=== PATIENT | female | born 1940 | race Caucasian/White ===

== ENCOUNTER 2021-12-23 11:20 | Day surgery (SDC) | payer MEDICARE ==
[2021-12-21 12:08] LABS: BASOPHILS % (AUTO) 0.3 % (0.0-5.0); EOSINOPHILS % (AUTO) 1.4 % (0.0-8.0); HEMATOCRIT 39.3 % (36-48); MEAN CORPUSCULAR HEMOGLOBIN 30.9 pg (27.0-33.0); MEAN CORPUSCULAR HGB CONC 32.8 g/dL (32.0-36.0); MEAN CORPUSCULAR VOLUME 94.2 fL (79-99); MONOCYTES % (AUTO) 6.3 % (3.0-13.0); NEUTROPHILS % (AUTO) 66.8 % (40.0-77.0); PLATELET COUNT (AUTO) 264 K/uL (130-400); RED BLOOD CELL COUNT(AUTO) 4.17 MIL/uL (4.00-5.50); RED CELL DISTRIBUTION WIDTH 12.3 % (11.0-15.5); WHITE BLOOD COUNT (AUTO) 6.5 K/uL (4.8-10.8)
[2021-12-21 12:20] LABS: INR 0.99 (0.85-1.15); PROTHROMBIN TIME 10.8 SEC (9.6-11.6)
[2021-12-21 12:26] LABS: BILIRUBIN,TOTAL 0.4 mg/dL (0.2-1.0); CREATININE 0.6 mg/dL (0.5-1.5)
[2021-12-22 13:53] VITALS: BP 199/87
[2021-12-23] VITALS (17 sets, daily range): BP systolic 144–237; BP diastolic 71–126
[~2021-12-23] VITALS: Ht 167.6 cm; Wt 58.2 kg
[~2021-12-23 11:20] MED LIST: BEET ROOT PO; CEFAZOLIN SODIUM 1 GM VIAL ONE; CEFAZOLIN SODIUM 2 GM VIAL IV ONE; DEXAMETHASONE SOD PHOSPHATE 10MG/ML 1ML VIAL ONE; FENTANYL CITRATE PF 50 MCG/1 ML 2ML VIAL ONE; GLYCOPYRROLATE 1 MG/5 ML SYRINGE ONE; LABETALOL 20MG VIAL IV ONE; LACTATED RINGERS 1000ML 1,000 ML IV ONE; LIDOCAINE 1%-EPI 1:100,000 20 ML VIAL IJ SCH; LIDOCAINE PF 100MG/5ML (2%) SYRINGE 5ML ONE; MIDAZOLAM HCL 1 MG/ML 2ML VIAL ONE; MULT-1367 PO; NEOSTIGMINE 5MG/5ML SYR IV ONE; PROPOFOL 10 MG/ML 20ML VIAL IV ONE; ROCURONIUM 10MG/1ML SYR 10 MG/ML ML ONE; SUCCINYLCHOLINE 200MG/10ML SYR ONE; TURMERIC PO; VIT1LOZE5 MM; VITAMIN D PO; garlic PO; magnesium PO; vitamin b PO
== END 2021-12-23 11:23 | disposition home or self-care (01) ==
LOC: DAH 11:20
PROVIDERS: ATTEND Otolaryngology
DX: D37.05 Neoplasm of uncertain behavior of pharynx (principal); J35.8 Other chronic diseases of tonsils and adenoids; Z20.822 Contact with and (suspected) exposure to COVID-19; E66.9 Obesity, unspecified; I25.10 Atherosclerotic heart disease of native coronary artery without angina pectoris; Z79.01 Long term (current) use of anticoagulants; Z98.891 History of uterine scar from previous surgery; Z90.710 Acquired absence of both cervix and uterus; Z90.49 Acquired absence of other specified parts of digestive tract; Z98.890 Other specified postprocedural states; Z88.8 Allergy status to other drugs, medicaments and biological substances; Z80.3 Family history of malignant neoplasm of breast
CPT/HCPCS: 36415; 42870; 71045; 80053; 85025; 85610; 87635; 88304; 88305; 88342; 93005; A4215; A4606; A6260; J0330; J0690 ×2; J1100; J2001; J2250; J2704; J2710; J3010; J3490 ×3; J7120

== ENCOUNTER 2025-07-27 12:50 | Inpatient (IN) | payer MEDICARE ==
[~2025-07-27] VITALS: Ht 165.1 cm; Wt 58.5 kg
[~2025-07-27 12:50] MED LIST changes: -CEFAZOLIN SODIUM 1 GM VIAL ONE; -CEFAZOLIN SODIUM 2 GM VIAL IV ONE; -DEXAMETHASONE SOD PHOSPHATE 10MG/ML 1ML VIAL ONE; -FENTANYL CITRATE PF 50 MCG/1 ML 2ML VIAL ONE; -GLYCOPYRROLATE 1 MG/5 ML SYRINGE ONE; -LABETALOL 20MG VIAL IV ONE; -LACTATED RINGERS 1000ML 1,000 ML IV ONE; -LIDOCAINE 1%-EPI 1:100,000 20 ML VIAL IJ SCH; -LIDOCAINE PF 100MG/5ML (2%) SYRINGE 5ML ONE; -MIDAZOLAM HCL 1 MG/ML 2ML VIAL ONE; -NEOSTIGMINE 5MG/5ML SYR IV ONE; -PROPOFOL 10 MG/ML 20ML VIAL IV ONE; -ROCURONIUM 10MG/1ML SYR 10 MG/ML ML ONE; -SUCCINYLCHOLINE 200MG/10ML SYR ONE
[2025-07-27 13:15] LABS: IMMATURE GRANULOCYTE ABSOLUTE 0.02 K/uL (0-1); NUCLEATED RED BLOOD CELLS 0.0 % (0.0-0.19); PLATELET COUNT (AUTO) 246 K/uL (130-400); RED BLOOD CELL COUNT(AUTO) 4.30 MIL/uL (4.00-5.50); RED CELL DISTRIBUTION WIDTH 12.9 % (11.0-15.5); WHITE BLOOD COUNT (AUTO) 7.4 K/uL (4.8-10.8)
[2025-07-27] MEDS: NITROGLYCERIN 0.4 MG SL TAB SL PRN (13:21)
[2025-07-27] MEDS: ASPIRIN 81MG CHEW TAB PO STA (13:21)
[2025-07-27 13:31] LABS: CREATININE 0.8 mg/dL (0.5-1.0); GLOMERULAR FILTR. RATE CALC 73.0 mL/min (>90); GLUCOSE,RANDOM 107.0 mg/dL (70-105); SODIUM SERUM 136.0 mmol/L (136-145); UREA NITROGEN, BLOOD 21.0 mg/dL (7-18)
--- NOTE | 2025-07-27 15:14 | HMCIMG ---
EXAM: CR Chest, 1 View. CLINICAL HISTORY: cp COMPARISON: Radiograph dated December 21, 2021 FINDINGS: LUNGS: There is no mass, infiltrate, or acute pulmonary abnormality. PLEURAL SPACES: No evidence of pleural effusion or pneumothorax. MEDIASTINUM: Mild cardiomegaly. Pulmonary vasculature and interstitial markings are within normal limits. BONES: No acute osseous abnormality. IMPRESSION: 1. Mild cardiomegaly. /[place]
--- NOTE | 2025-07-27 16:00 | ERN ---
ED Note History of Present Illness Stated Complaint: CHEST PAIN Chief Complaint: Chest Pain Time Seen by MD: 12:55 Time Seen by Midlevel: 12:58 Dictation: 85-year-old female coming in for chest pain that started this morning. Patient states she was in sikhism when she began with jaw pain then bilateral shoulder pain than chest pain. Patient states she has never experienced this before. Patient states the pain subsided once she already here to the emergency room. Patient denies any medical problems, states she does not take any daily medications only vitamins. Allergies: Coded Allergies: hydrochlorothiazide (Unverified Allergy, Unknown, 12/22/21) Uncoded Allergies: lisinpril (Allergy, Unknown, 12/22/21) tetanus (Allergy, Unknown, 12/22/21) Home Meds Reported Medications Multivitamin (Multivitamin) 1 Each Tablet, 1 EACH PO AM, TAB 12/22/21 [Turmeric] No Conflict Check, 1 TAB PO AM 12/22/21 Vit C/Zn Gluc/Herbal No.325 (Elderberry Zinc Vit C Lozenge) 1 Each Lozenge, 1 EACH MM AM, KARYN 12/22/21 [Vitamin D] No Conflict Check, 1 TAB PO AM 12/22/21 [magnesium] No Conflict Check, 1 TAB PO AM 12/22/21 [vitamin b] No Conflict Check, 1 TAB PO AM 12/22/21 [garlic] No Conflict Check, 2 TAB PO AM 12/22/21 [beet root powder] No Conflict Check, 1 APPL PO AM 12/22/21 Past Medical History Past Medical History: Hypertension Surgical History: Appendectomy, BTL, Surgical History Other: THROAT SX, RT HIP SX Review of System Dictation Constitutional: Negative for fever,chills, and weight loss Eyes: Negative for injury, pain,redness, and discharge ENT: Negative for injury,pain or swelling Cardiovascular: Positive for chest pain Respiratory: Negative for shortness of breath, cough, and wheezing, Abdomen/GI: Negative for abdominal pain, nausea, vomiting, diarrhea, and constipation Back: Negative for injury and pain : Negative for injury, bleeding and discharge MS/Extremity: Negative for injury and deformity Skin: Negative for rash, and discoloration Neuro: Negative for headache, weakness, numbness, tingling, and seizure Psych: Negative for suicide ideation, homicidal ideation, and hallucinations Review of Systems: was completed Initial Vital Sign VS Vital Signs Date Time Temp Pulse Resp B/P (MAP) Pulse Ox O2 Delivery O2 Flow Rate FiO2 07/27/25 12:52 98.1 97 20 182/97 97 Room Air 0 07/27/25 13:15 21 Physical Exam Dictation General: awake, alert, NAD Head/Face: Normocephalic, atraumatic Eyes: PERRL, EOMI, vision at baseline ENT: oral cavity clear, TMs clear, no signs of infection Neck: Trachea midline, supple, no nuchal rigidity Cardiovascular: RRR, normal S1/S2, No MRGs, no JVD Respiratory: CTAB, no respiratory distress, No rales or wheezes Abdomen: Soft, non-tender, non-distended, normal bowel sounds, no guarding or rebound. Skin: Warm, dry, normal turgor, no rash MS/Extremity: Pulses equal, no cyanosis, neurovascular intact, FROM Neuro: COAx4, GCS 15, strength 5/5, CN 2-12 intact, normal cerebellar exam, normal gait, Psych: Normal behavior, mood, and affect normal Results (Laboratory/Radiology) Laboratory/Radiology Laboratory Tests Test 07/27/25 13:09 07/27/25 14:50 White Blood Count 7.4 K/uL (4.8-10.8) Red Blood Count 4.30 MIL/uL (4.00-5.50) Hemoglobin 13.3 g/dL (12.0-16.0) Hematocrit 40.5 % (36-48) Mean Corpuscular Volume 94.2 fL (79-99) Mean Corpuscular Hemoglobin 30.9 pg (27.0-33.0) Mean Corpuscular Hemoglobin Concent 32.8 g/dL (32.0-36.0) Red Cell Distribution Width 12.9 % (11.0-15.5) Platelet Count 246 K/uL (130-400) Mean Platelet Volume 8.8 fL (7.5-10.5) Immature Granulocyte % (Auto) 0.3 % (0-1) Neutrophils (%) (Auto) 65.9 % (40.0-77.0) Lymphocytes (%) (Auto) 22.2 % (21.0-51.0) Monocytes (%) (Auto) 9.8 % (3.0-13.0) Eosinophils (%) (Auto) 1.5 % (0.0-8.0) Basophils (%) (Auto) 0.3 % (0.0-5.0) Neutrophils # (Auto) 4.9 K/uL (1.8-7.7) Lymphocytes # (Auto) 1.6 K/uL (1.0-4.8) Monocytes # (Auto) 0.7 K/uL (0.1-1.0) Eosinophils # (Auto) 0.11 K/uL (0.00-0.70) Basophils # (Auto) 0.02 K/uL (0.00-0.20) Absolute Immature Granulocyte (auto 0.02 K/uL (0-1) Nucleated Red Blood Cells 0.0 % (0.0-0.19) Sodium Level 136 mmol/L (136-145) Potassium Level 4.9 mmol/L (3.5-5.1) Chloride Level 99 mmol/L (101-111) L Carbon Dioxide Level 33 mmol/L (21-32) H Blood Urea Nitrogen 21 mg/dL (7-18) H Creatinine 0.8 mg/dL (0.5-1.0) Glomerular Filtration Rate Calc 73 mL/min (>90) Random Glucose 107 mg/dL (70-105) H Total Calcium 9.6 mg/dL (8.5-10.1) Troponin I High Sensitivity 10 ng/L (4-50) 11 ng/L (4-50) B-Type Natriuretic Peptide 67 pg/mL (0-100) Labs Reviewed?: Yes X-RAY Comment: [place] [address] [place] [address] IMAGING REPORT Signed PATIENT: MAX PEOPLES MR#: [id number] : 1940 SEX: F AGE: 85 LOCATION: [facility] ORDER 57 STATUS: REG ER REPORT#: [id number] SERVICE 55 REASON: cp ORDERING PHYSICIAN: SONNY CARDENAS NP PROCEDURE: CXR1VW - CHEST 1VW EXAM: CR Chest, 1 View. CLINICAL HISTORY: cp COMPARISON: Radiograph dated December 21, 2021 FINDINGS: LUNGS: There is no mass, infiltrate, or acute pulmonary abnormality. PLEURAL SPACES: No evidence of pleural effusion or pneumothorax. MEDIASTINUM: Mild cardiomegaly. Pulmonary vasculature and interstitial markings are within normal limits. BONES: No acute osseous abnormality. IMPRESSION: 1. Mild cardiomegaly. /[place] DICTATED BY: OSWALDO STEWART Jr., MD DATE: 07/27/251612 ELECTRONICALLY SIGNED BY: OSWALDO STEWART Jr., MD DATE: 07/27/251612 ED Course ED Course Orders Procedure Category Date Status Time Cbc With Differential LAB 07/27/25 Complete 12:56 Basic Metabolic Panel LAB 07/27/25 Complete 12:56 Troponin I High LAB 07/27/25 Complete Sensitivity 12:56 12 Lead Ekg Tracing- EKG 07/27/25 Logged Technical 12:56 Chest 1vw RAD 07/27/25 Resulted 12:56 B-Type Natriuretic LAB 07/27/25 Complete Peptide 12:56 Aspirin 81mg Chew Tab PHA 07/27/25 Complete (Aspirin 81mg Chew 12:57 Nitroglycerin 0.4mg PHA 07/27/25 In Process Sl Tab (Nitrostat) 13:00 Troponin I High LAB 07/27/25 Complete Sensitivity 14:38 Current Medications Medications (Trade) Dose Ordered Sig/Felicity Route PRN Reason Start Time Stop Time Status Last Admin Dose Admin Aspirin (Aspirin 81mg Chew Tab) 324 mg ONCE STAT PO 07/27/25 12:57 07/27/25 12:59 DC 07/27/25 13:21 Nitroglycerin (Nitrostat) 0.4 mg AD PRN SL CHEST PAIN 07/27/25 13:00 08/26/25 12:59 07/27/25 13:21 Vital Signs Date Time Temp Pulse Resp B/P (MAP) Pulse Ox O2 Delivery O2 Flow Rate FiO2 07/27/25 15:30 98.1 73 13 164/78 97 Room Air* 0 21 07/27/25 14:30 98.1 82 17 182/82 97 Room Air* 0 21 07/27/25 13:25 98.1 84 18 171/74 97 Room Air* 0 21 07/27/25 13:15 84 18 204/85 98 Room Air* 0 21 07/27/25 12:52 98.1 97 20 182/97 97 Room Air 0 HEART Score Response (Comments) Value History: High suspicion (+2) 2 EKG: Normal 0 Age: > 65yrs (+2) 2 Risk Factors: No known risk factors (0) 0 Total 4 Medical Decision Making MDM MDM: 85-year-old female coming in for chest pain that started this morning. Patient states she was in sikhism when she began with jaw pain then bilateral shoulder pain than chest pain. Patient states she has never experienced this before. Patient states the pain subsided once she already here to the emergency room. Patient denies any medical problems, states she does not take any daily medications only vitamins. Blood work is unremarkable. Troponin x2 negative. Heart score of four. Patient will be admitted for observation to rule out ACS. Spoke to hospitalist team, okay to admit. Differential diagnosis: ACS, dehydration, anxiety, GERD Rationale: Tests considered and ordered secondary to shared decision making include: labs, ECG and radiology Previous outside records reviewed: Old ER visits. Risk of complication and/or morbidity or mortality of patient management: None Medications-Per medication reconciliation Need for hospitalization: Patient does meet criteria for hospitalization. Need for emergency major/minor surgery: No There are no social concerns with this patient. Prescription drug management Prescriptions will include symptomatic care Patient's prior external medical records from other ER visits were reviewed by me as indicated. Prior testing and results from previous visits were reviewed. Prior tests were taken into account with medical decision making and resource utilization, independent historian/historians were used to obtain complete medical history. I independently interpreted the test that were performed, results were reviewed by me and considered findings on radiology if ordered. Medical management and examination interpretation discussions were had by me with other qualified healthcare professionals as indicated for the patient's care. DX & DISP Disposition: Discharge Decision to Admit Date: Jul 27, 2025 Decision to Admit Time: 16:00 Departure Impression: Primary Impression: Chest pain at rest Condition: Stable Referrals: GIACOMO KHOURY MD (PCP) I have reviewed the case, and I agree with, Diagnosis and Plan SONNY CARDENAS NP Jul 27, 2025 16:00
--- NOTE | 2025-07-27 16:45 | EKG ---
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
[2025-07-27 17:05] LABS: LDL DIRECT 128.0 mg/dL (0-99)
--- NOTE | 2025-07-27 17:09 | NUR ---
ORTHOSTATIC VITALS SUPINE HR 68 BP 171/83 SITTING HR 78 BP 166/85 STANDING HR 88 BP 170/88
--- NOTE | 2025-07-27 18:03 | NUR ---
NO MED REC. PT DOES NOT TAKE ANY PRESCRIPTION MEDS.
--- NOTE | 2025-07-27 18:04 | HP ---
[facility] HISTORY AND PHYSICAL Date of Service: Jul 27, 2025 Time of Service: 17:49 HISTORY OF PRESENT ILLNESS: Date of service: 07/27/2025, patient was seen in ER room 11 This is a 85-year-old female underlying history of poorly controlled hypertension who presented to the ER for further evaluation of chest pain. Patient states that she was in the [place] today and close to 11:30 a.m., history started having significant midsternal chest pain radiating to the upper jaw, shoulder blades and pain was [id number] in intensity. Pain lasted for about 40 minutes and patient had symptoms of dyspepsia as well. Patient denies any previous history of NC or cardiac arrhythmia. She has had history of longstanding hypertension for about 15 years. Previously would used to take antihypertensives and she has been on lisinopril which caused cough, patient states that she was having low blood pressure after starting amlodipine as outpatient and she also has possible adverse reaction to HCTZ but patient does not know the type of reaction. Chest pain is currently minimal. She denies any headache otherwise. Denies any focal weakness of upper or lower extremities. Patient has recently noticed that she would get tired with exertional activities. Denies noticing significant chest pain. 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 On presentation to the hospital, blood pressure fluctuating between 204/182 systolic/70s-90s diastolic. Labs on presentation showed WBC count of 7400, hemoglobin 13.3, platelet count of [id number]. BMP showed sodium of 136, potassium 4.9, chloride of 99, bicarb of 33, BUN of 21, creatinine of 0.8, blood glucose of 107. Cardiac panel showed negative troponin. EKG showed changes of LVH with sinus rhythm. Patient will be admitted for further management of hypertensive urgency with concerns for anginal symptoms. Due to multiple adverse reaction to antihypertensives, discussed with Cardiology with regards to further initiation and titration of antihypertensive therapy. We will obtain echocardiogram, cycle troponin to rule out active ACS. Given underlying age and risk factors, we will consider possible stress test for risk stratification. REVIEW OF SYSTEMS CONSTITUTIONAL: Denies fevers, chills, or night sweats. No unintentional weight loss reported. NEUROLOGICAL: Denies headache, amaurosis fugax, motor weakness, sensory deficit, vertigo/spinning sensation, gait abnormalities, or tremors. ENT: No hearing loss, otalgia, otorrhea, rhinitis, rhinorrhea, hoarseness, or sore throat. CARDIOVASCULAR: Denies any exertional angina, dyspnea on exertion, orthopnea, paroxysmal nocturnal dyspnea, palpitations, life-threatening arrhythmias, claudication. PULMONARY: Denies any shortness of breath, cough, phlegm/sputum, hemoptysis, pleuritic chest pain. SLEEP: Denies morning headaches, daytime somnolence or napping. Denies difficulty falling asleep, staying asleep, waking from sleep. Denies knowledge of snoring. GASTROINTESTINAL: Denies any type of dysphagia to either liquids or solids. Denies nausea, vomiting, pyrosis, early satiety, abdominal pain, diarrhea, constipation, or changes in stool consistency or caliber. Denies coffee-ground emesis, hematemesis, hematochezia, or melanotic stools. GENITOURINARY: Denies frequency, urgency, nocturia, hematuria or incontinence (Storage/Irritative symptoms.) Low urinary stream, straining to void, urinary intermittency or hesitancy, splitting of the voiding stream, terminal dribbling. ENDOCRINOLOGIC: Denies polyuria, polydipsia, polyphagia or heat/cold intolerances. HEMATOLOGIC: Denies thrombophilia/previous clots, or coagulopathy/bleeding disorders. ONCOLOGIC: Denies personal history of malignancy. DERMATOLOGIC: Denies rashes or pruritus. PSYCHIATRIC: Denies any suicidal or homicidal ideation. Denies hallucinations. PAST MEDICAL HISTORY: Uncontrolled hypertension, patient currently is using lifestyle modification for management of hypertension PAST SURGICAL HISTORY: Appendectomy, , history of right hip fracture requiring surgical fixati on PAST SOCIAL HISTORY: Patient denies active smoking or alcohol consumption FAMILY HISTORY: Denies family history of major health condition Allergies: Hydrochlorothiazide, lisinopril, tetanus Home medications: Reports taking multivitamins at home and oycq-mwj-rcilchz supplements Coded Allergies: hydrochlorothiazide (Unverified Allergy, Unknown, 12/22/21) Uncoded Allergies: lisinpril (Allergy, Unknown, 12/22/21) tetanus (Allergy, Unknown, 12/22/21) PHYSICAL EXAM GENERAL APPEARANCE: The patient is awake, alert, and oriented, in no acute cardiopulmonary distress. NEUROLOGICAL: Cranial nerves II-XII grossly intact. Motor is 5/5 in bilateral upper and lower extremities proximal to distal. No sensory deficits. HEENT: Face is symmetric. Pupils are equal and reactive. Extraocular movements are intact. NECK: Supple. No JVD. No thyromegaly. No submental, submandibular, pre-/postauricular, occipital or supraclavicular lymphadenopathy. CHEST: Normal chest expansion. No Telemetry. LUNGS: Absence of any rales, rhonchi or any wheezing. CARDIOVASCULAR: Regular. S1 and S2 normal. No appreciable rubs, murmurs or gallops. ABDOMEN: Soft, nontender, and nondistended. There is no rebound, voluntary guarding, or rigidity. : Deferred. No Guerra. EXTREMITIES: Non-edematous and not cyanotic. No clubbing. Good capillary refill. SKIN: No skin breakdown. Vital Sign (Last 24 Hours) 07/27/25 15:30 Temp 98.1 Pulse 73 Resp 13 B/P (MAP) 164/78 Pulse Ox 97 O2 Delivery Room Air* O2 Flow Rate 0 FiO2 21 LABS: Laboratory: Test 07/27/25 14:50 07/27/25 13:09 Range/Units Troponin I High Sensitivity 11 4-50 ng/L White Blood Count 7.4 4.8-10.8 K/uL Red Blood Count 4.30 4.00-5.50 MIL/uL Hemoglobin 13.3 12.0-16.0 g/dL Hematocrit 40.5 36-48 % Mean Corpuscular Volume 94.2 79-99 fL Mean Corpuscular Hemoglobin 30.9 27.0-33.0 pg Mean Corpuscular Hemoglobin Concent 32.8 32.0-36.0 g/dL Red Cell Distribution Width 12.9 11.0-15.5 % Platelet Count 246 130-400 K/uL Mean Platelet Volume 8.8 7.5-10.5 fL Immature Granulocyte % (Auto) 0.3 0-1 % Neutrophils (%) (Auto) 65.9 40.0-77.0 % Lymphocytes (%) (Auto) 22.2 21.0-51.0 % Monocytes (%) (Auto) 9.8 3.0-13.0 % Eosinophils (%) (Auto) 1.5 0.0-8.0 % Basophils (%) (Auto) 0.3 0.0-5.0 % Neutrophils # (Auto) 4.9 1.8-7.7 K/uL Lymphocytes # (Auto) 1.6 1.0-4.8 K/uL Monocytes # (Auto) 0.7 0.1-1.0 K/uL Eosinophils # (Auto) 0.11 0.00-0.70 K/uL Basophils # (Auto) 0.02 0.00-0.20 K/uL Absolute Immature Granulocyte (auto 0.02 0-1 K/uL Nucleated Red Blood Cells 0.0 0.0-0.19 % Sodium Level 136 136-145 mmol/L Potassium Level 4.9 3.5-5.1 mmol/L Chloride Level 99 L 101-111 mmol/L Carbon Dioxide Level 33 H 21-32 mmol/L Blood Urea Nitrogen 21 H 7-18 mg/dL Creatinine 0.8 0.5-1.0 mg/dL Glomerular Filtration Rate Calc 73 >90 mL/min Random Glucose 107 H 70-105 mg/dL Hemoglobin A1c 5.5 4.0-6.0 % Estimated Average Glucose (eAG) 111 70-126 mg/dL Total Calcium 9.6 8.5-10.1 mg/dL B-Type Natriuretic Peptide 67 0-100 pg/mL Triglycerides Level 81 30-200 mg/dL Cholesterol Level 252 H <200 mg/dL LDL Cholesterol 128 H 0-99 mg/dL HDL Cholesterol 89 H 35-85 mg/dL Thyroid Stimulating Hormone (TSH) 1.46 0.36-3.74 uIU/mL Current Medications Medications (Trade) Dose Ordered Sig/Felicity Route PRN Reason Start Time Stop Time Status Last Admin Dose Admin Acetaminophen (TYLenol 325MG TAB) 650 mg Q6H PRN PO MILD PAIN (1-3) 07/27/25 17:00 08/26/25 16:59 Aspirin (Aspirin 81mg Chew Tab) 81 mg DAILY PO 07/28/25 09:00 08/27/25 08:59 Aspirin (Aspirin 81mg Chew Tab) 324 mg ONCE STAT PO 07/27/25 12:57 07/27/25 12:59 DC 07/27/25 13:21 324 MG Atorvastatin Calcium (LIPItor 20MG) 20 mg HS PO 07/27/25 21:00 08/26/25 20:59 Famotidine (Pepcid 20mg Tab) 20 mg BID PO 07/27/25 21:00 08/26/25 20:59 Labetalol HCl (TRANdate 20MG SYG) 10 mg Q6H PRN IV for SBP> 180 07/27/25 18:00 08/26/25 17:59 Nitroglycerin (Nitrostat) 0.4 mg AD PRN SL CHEST PAIN 07/27/25 13:00 08/26/25 12:59 07/27/25 13:21 0.4 MG Ondansetron HCl (zoFRAN 4MG INJ) 4 mg Q6H PRN IVP NAUSEA/VOMITING 07/27/25 17:00 08/26/25 16:59 DIAGNOSTICS / RADIOLOGY: SERVICE [id number] REASON: cp ORDERING PHYSICIAN: SONNY CARDENAS NP PROCEDURE: CXR1VW - CHEST 1VW EXAM: CR Chest, 1 View. CLINICAL HISTORY: cp COMPARISON: Radiograph dated December 21, 2021 FINDINGS: LUNGS: There is no mass, infiltrate, or acute pulmonary abnormality. PLEURAL SPACES: No evidence of pleural effusion or pneumothorax. MEDIASTINUM: Mild cardiomegaly. Pulmonary vasculature and interstitial markings are within normal limits. BONES: No acute osseous abnormality. IMPRESSION: 1. Mild cardiomegaly. /[place] DICTATED BY: OSWALDO STEWART Jr., MD DATE: 07/27/251612 ELECTRONICALLY SIGNED BY: OSWALDO STEWART Jr., MD DATE: 07/27/251612 ASSESSMENT: Hypertensive urgency, POA Chest pain, POA, rule out ACS/unstable angina, POA History of poorly controlled hypertension, POA Left ventricular hypertrophy noted on EKG, POA Hyperlipidemia, uncontrolled, POA Octogenarian, POA History of adverse reactions to multiple antihypertensives previously including lisinopril, HCTZ, and amlodipine, POA PLAN: Patient Will be admitted to cardiac telemetry floor Initially she was noted to have blood pressure in the 200s-180s systolic which is improving into the 160s. Continue to monitor blood pressure trend over the next 24-48 hours Nitroglycerin p.r.n. for chest pain Will start labetalol 100 mg bid and slowly decrease blood pressure in the next 48-72 hours Patient's case was discussed with Dr. Guo with Cardiology, we will trend troponin to rule out active ACS, discussed with Cardiology about further management of poorly controlled blood pressure, we will have Cardiology optimize blood pressure management for the patient We will obtain 2D echocardiogram We will see if patient needs Lexiscan stress test this admission cardiac risk stratification this admission We will start patient on fish oil for HLD, patient does not want to be started on any statin therapy due to prior exprerience, I asked patient to read up on zetia, and maybe zetia may be an option for management of HLD We will start patient on aspirin 81 mg daily All labs will be repeated in the morning, we will monitor patient closely under telemetry We will keep patient on DVT prophylaxis with geriatric dose Lovenox, GI prophylaxis with Pepcid Weight hospitalization for at least 48-72 hours Plan of care was discussed with patient and family at bedside, Cooper Sanders MD Advanced Care Planning: Which of the following were discussed: Hospice care: Yes __ No _X_ Therapeutic options: Yes _X_ No __ Advance directives: Yes _X_ No __ Other discussions: Discussed with who?: Patient Voluntary nature of this service was explained to the patient? Yes _x_ No __ Amount of time spent: 20 minutes COOPER SANDERS MD Jul 27, 2025 18:04
[2025-07-27] MEDS: FAMOTIDINE 20MG TAB PO SCH (19:46)
[2025-07-27] MEDS: FISH OIL 1000 MG/CAP PO SCH (19:46)
[2025-07-27 20:37] LABS: CREATINE KINASE, TOTAL 60.0 U/L (21-232)
--- NOTE | 2025-07-27 23:21 | CONS ---
CONSULT NOTE: CARDIOLOGY Reason for consult: Hypertension, chest pain HPI/story at presentation: This is a pleasant 85-year-old female with past medical history of progressively complaints of atypical chest discomfort, radiating to the neck. Patient has a history of hypertension, uncontrolled and not on any medical therapy because of issues with side effects with medications in the past. Cardiology was consulted for further evaluation and management. Subjective: Past medical history: See below Allergies, Meds See chart Review of systems Review of Systems Constitutional: Negative for chills and fever. HENT: Negative for ear discharge and ear pain. Eyes: Negative for photophobia and discharge. Respiratory: Negative for cough, sputum production and stridor. Cardiovascular: Negative for chest pain and palpitations. Gastrointestinal: Negative for diarrhea and vomiting. Genitourinary: Negative for frequency. Musculoskeletal: Negative for myalgias. Skin: Negative for rash. Neurological: Negative for focal weakness and seizures. Endo/Heme/Allergies: Negative for polydipsia. Psychiatric/Behavioral: Negative for hallucinations. Vitals see chart PHYSICAL EXAMINATION GENERAL: The patient is alert and oriented*3 HEENT: Nonicteric sclerae, non traumatic HEART: Regular rate and rhythm with no murmurs LUNGS: Clear to auscultation bilaterally ABDOMEN: No acute issues, non tender GENITAL, RECTAL: deferred SKIN: No rash NEUROLOGIC: NFND EXTREMITIES: No edema ASSESSMENT CHEST PAIN, HYPERTENSION Atypical pain radiating to the neck HYPERTENSION intolerant to amlodipine because of swelling and lisinopril because of cough in the past CORE MEASURES Pending OTHER MEDICAL PROBLEMS Reviewed PLAN 07/27/2025 no further chest pain, troponins negative. Plan for stress testing tomorrow to further evaluate for ischemia. Received a dose of labetalol to help with blood pressures and she has not had any symptoms with it. She is also willing to consider a low-dose of amlodipine to help blood pressures if needed. Will try amlodipine first-given once a day dosing. If she has any issues with side effects/hypotension, can attempt alternative agents. Seen and examined 07/27/2025 at around 2300. ATTESTATION I was involved substantially in the care of this patient Number and complexity of problems addressed: 1 acute illness with systemic features Amount and or complexity of data Review of prior external note(s) from each unique source: 2+ Ordering of each unique test : 0 Review of the result(s) of each unique test: 2+ Assessment requiring an independent historian(s): No Independent interpretation of test performed by another MD/QHCP/appropriate source (not separately reported) : No Discussion of management or test interpretation with external MD/QHCP/a ppropriate source (not separately reported) : No Risk status (cardiac, billing related): Moderate HOA BLANCA MD Jul 27, 2025 23:21
--- NOTE | 2025-07-28 00:59 | NUR ---
PT INSTRUCTED NOT TO HAVE ANYTHING TO EAT OR DRINK AFTER MIDNIGHT FOR THEIR CARDIAC STRESS TEST. PT VERBALIZED UNDERSTANDING.
[2025-07-28 04:45] LABS: IMMATURE GRANULOCYTE ABSOLUTE 0.01 K/uL (0-1); NUCLEATED RED BLOOD CELLS 0.0 % (0.0-0.19); PLATELET COUNT (AUTO) 215 K/uL (130-400); RED BLOOD CELL COUNT(AUTO) 3.62 MIL/uL (4.00-5.50); RED CELL DISTRIBUTION WIDTH 13.0 % (11.0-15.5); WHITE BLOOD COUNT (AUTO) 5.3 K/uL (4.8-10.8)
[2025-07-28 05:13] LABS: CREATINE KINASE, TOTAL 49.0 U/L (21-232); CREATININE 0.9 mg/dL (0.5-1.0); GLOMERULAR FILTR. RATE CALC 63.0 mL/min (>90); GLUCOSE,RANDOM 101.0 mg/dL (70-105); SODIUM SERUM 136.0 mmol/L (136-145); UREA NITROGEN, BLOOD 20.0 mg/dL (7-18)
[2025-07-28] MEDS ORDERED: PoTASSium chloRIDE 20MEQ ER 20 MEQ ERTAB PO PRN (06:00)
[2025-07-28] MEDS: PoTASSium chl 10% ELIXIR 20MEQ 20 MEQ/15 ML UDCUP PO PRN (06:09)
--- NOTE | 2025-07-28 07:09 | HMCIMG ---
EXAMINATION: ULTRASOUND EXAMINATION OF THE KIDNEYS WITH SPECTRAL DOPPLER OF THE RENAL VESSELS. CLINICAL HISTORY: To assess for renal artery stenosis. COMPARISON: None. TECHNIQUE: Grayscale and color ultrasound images of the kidneys, and spectral Doppler of the renal arteries are submitted. FINDINGS: The kidneys are normal in caliber, the right kidney measures 11.6 x 6.4 x 6.1 cm and the left kidney measures 9.1 x 4.0 x 3.1 cm in craniocaudal, AP, and transverse dimensions respectively. There is normal renal cortical thickness, and increased cortical echogenicity. There is no renal calculus, mass, or hydronephrosis. There is a simple cortical cyst that measures 1.2 x 1.0 cm in the left renal upper pole. Right Peak systolic velocities within the proximal, mid, and distal main right renal artery are 87, 53, and 49 cm/s respectively (resistive index of 0.7, 0.7, and 0.6). Peak systolic velocities within the right intrarenal mid and lower pole arteries are 45 and 41 cm/s respectively (resistive index of 0.7 and 0.6). Left Peak systolic velocities within the proximal, mid, and distal main left renal artery are 155, 95, and 65 cm/s respectively (resistive index of 0.8, 0.8, and 0.6). Peak systolic velocity within the abdominal aorta at the level of the renal arteries is 95 cm/s and resistive index is 0.7 Right renal to aortic ratio: 1.0 Left renal to aortic ratio: 1.9 IMPRESSION: There is no renal arterial stenosis by measurement criteria. Increased echogenicity of both the kidneys may reflect renal parenchymal disease. Recommend clinical correlation and with laboratory parameters. Left renal simple cortical cyst. /Maximiliano
[2025-07-28 08:00] VITALS: BP 183/77; PULSE 65; RESP 13; TEMP 98; O2SAT 97
[2025-07-28] MEDS: ASPIRIN 81MG CHEW TAB PO SCH (08:31)
[2025-07-28] MEDS: amLODIPine 2.5 MG TAB PO SCH (08:31)
[2025-07-28] MEDS: amLODIPine 2.5 MG TAB PO ONE (10:25)
--- NOTE | 2025-07-28 12:11 | HMCSR ---
APPROVED REPORT EXAM: Two-dimensional and M-mode echocardiogram with Doppler and color Doppler. INDICATION ICD: Chest pain, cardiomegaly, assess for heart failure 2D Dimensions RVDd2.9 cmLVEF(%)78.1 (>50%)LVED Vol(simp.)40.0 mL IVSd1.3 (0.7-1.1cm)FS(%)46 %LVES Vol(simp.)16.0 mL LVDd4.4 (3.8-5.6cm)LA (2D)3.3 (1.6-4.0cm)LVEF(%, simp.)60 % PWd1.0 (0.7-1.1cm)Ao Root(2D)2.7 (2.0-3.7cm) IVSs1.6 cmLVOT diam2.3 (1.8-2.4cm) LVDs2.4 (2.5-4.0cm)IVC diam1.7 cm PWs1.6 cm Deformation Strain Apical 4-17.8 % Apical 2-11.5 % Apical 3-17.2 % Global Strain-15.5 % M-Mode Dimensions EPSS0.5 cm LA (MM)3.4 (1.6-4.0cm) Ao Root(MM)2.7 (2.0-3.7cm) Aortic Valve AoV Vmax1.5 m/Bee Peak GR8.6 mmHgLVOT Vmax0.9 m/s AoV VTI0.3 mAo Mean GR5.0 mmHgLVOT VTI0.19 m NAYELY (VMAX)2.54 cm2AVA (VTI) 2.5 cm2 Mitral Valve MV E Vmax88.6 cm/sDECEL Coxo066 ms MV A Evnp413.0 cm/sP 1/2 T79 ms E/A ratio0.7MVA (PHT)2.8 cm2 TDI E/E' Bvrbpi07.6E/E' Blmlnzd61.4 Medial E' Peak V4.30 cm/sLateral E' Peak V4.14 cm/s Pulmonary Valve PV Vmax0.9 m/sPV VTI0.20 mPV Mean GR2.2 mmHg PV Peak GR3.5 mmHg Tricuspid Valve TR Vmax1.8 m/sRVSP12.3 mmHg TR Peak GR13.6 mmHg Left Ventricle The left ventricle is normal size. GLS -16.0% There is normal left ventricular wall thickness. The LV EF is > 55%. 3D volume EF 57% Stage I diastolic dysfunction. Right Ventricle The right ventricle is normal size. The right ventricular systolic function is normal. Atria The left atrium size is normal. The right atrium size is normal. Aortic Valve The aortic valve is trileaflet normal in structure. No aortic regurgitation is present. There is no a ortic valvular stenosis. Mitral Valve The mitral valve is normal in structure. There is trace of mitral valve regurgitation noted. There is no mitral valve stenosis. Tricuspid Valve The tricuspid valve is normal in structure. There is no tricuspid valve regurgitation noted. Pulmonic Valve The pulmonary valve is normal in structure. There is no pulmonic valvular regurgitation. Great Vessels The aortic root is normal in size. The IVC is normal in size and collapses >50% with inspiration. Pericardium There is no pericardial effusion. Other Information Quality : Adequate Conclusion The LVEF is > 55%. 3D volume EF 57% Stage I diastolic dysfunction. There is normal left ventricular wall thickness. The left ventricle is normal size. GLS -16.0% There is no pericardial effusion. normal pulmonary pressures Study quality was adequate
[2025-07-28 12:24] VITALS: BP 123/70; PULSE 78; RESP 15; TEMP 98.2
--- NOTE | 2025-07-28 12:31 | PN ---
[facility] PROGRESS NOTE Date of Service: Jul 28, 2025 Time of Service: 12:28 SUBJECTIVE: Follow up visit for 85-year-old female admitted to the hospital for chest pain, rule out ACS. Consultation with Cardiology has been obtained planning for stress test. This morning she reports no chest pain, shortness breath. REVIEW OF SYSTEMS CONSTITUTIONAL: Denies fevers, chills, or night sweats. No unintentional weight loss reported. NEUROLOGICAL: Denies headache, amaurosis fugax, motor weakness, sensory deficit, vertigo/spinning sensation, gait abnormalities, or tremors. ENT: No hearing loss, otalgia, otorrhea, rhinitis, rhinorrhea, hoarseness, or sore throat. CARDIOVASCULAR: Denies any exertional angina, dyspnea on exertion, orthopnea, paroxysmal nocturnal dyspnea, palpitations, life-threatening arrhythmias, claudication. PULMONARY: Denies any shortness of breath, cough, phlegm/sputum, hemoptysis, pleuritic chest pain. SLEEP: Denies morning headaches, daytime somnolence or napping. Denies difficulty falling asleep, staying asleep, waking from sleep. Denies knowledge of snoring. GASTROINTESTINAL: Denies any type of dysphagia to either liquids or solids. Denies nausea, vomiting, pyrosis, early satiety, abdominal pain, diarrhea, constipation, or changes in stool consistency or caliber. Denies coffee-ground emesis, hematemesis, hematochezia, or melanotic stools. GENITOURINARY: Denies frequency, urgency, nocturia, hematuria or incontinence (Storage/Irritative symptoms.) Low urinary stream, straining to void, urinary intermittency or hesitancy, splitting of the voiding stream, terminal dribbling. ENDOCRINOLOGIC: Denies polyuria, polydipsia, polyphagia or heat/cold intolerances. HEMATOLOGIC: Denies thrombophilia/previous clots, or coagulopathy/bleeding disorders. ONCOLOGIC: Denies personal history of malignancy. DERMATOLOGIC: Denies rashes or pruritus. PSYCHIATRIC: Denies any suicidal or homicidal ideation. Denies hallucinations. PHYSICAL EXAM GENERAL APPEARANCE: The patient is awake, alert, and oriented, in no acute cardiopulmonary distress. NEUROLOGICAL: Cranial nerves II-XII grossly intact. Motor is 5/5 in bilateral upper and lower extremities proximal to distal. No sensory deficits. HEENT: Face is symmetric. Pupils are equal and reactive. Extraocular movements are intact. NECK: Supple. No JVD. No thyromegaly. No submental, submandibular, pre- /postauricular, occipital or supraclavicular lymphadenopathy. CHEST: Normal chest expansion. No Telemetry. LUNGS: Absence of any rales, rhonchi or any wheezing. CARDIOVASCULAR: Regular. S1 and S2 normal. No appreciable rubs, murmurs or gallops. ABDOMEN: Soft, nontender, and nondistended. There is no rebound, voluntary guarding, or rigidity. : Deferred. No Guerra. EXTREMITIES: Non-edematous and not cyanotic. No clubbing. Good capillary refill. SKIN: No skin breakdown. Vital Signs (last 8hr) Date Time Temp Pulse Resp B/P (MAP) Pulse Ox O2 Delivery O2 Flow Rate FiO2 07/28/25 08:00 98.1 65 13 183/77 97 Room Air 0.0 07/28/25 08:00 97 Room Air* 0 21 LABS: Laboratory: Test 07/28/25 04:33 07/27/25 13:09 Range/Units White Blood Count 5.3 # 4.8-10.8 K/uL Red Blood Count 3.62 L 4.00-5.50 MIL/uL Hemoglobin 11.5 L 12.0-16.0 g/dL Hematocrit 33.7 L 36-48 % Mean Corpuscular Volume 93.1 79-99 fL Mean Corpuscular Hemoglobin 31.8 27.0-33.0 pg Mean Corpuscular Hemoglobin Concent 34.1 32.0-36.0 g/dL Red Cell Distribution Width 13.0 11.0-15.5 % Platelet Count 215 130-400 K/uL Mean Platelet Volume 9.0 7.5-10.5 fL Immature Granulocyte % (Auto) 0.2 0-1 % Neutrophils (%) (Auto) 52.8 40.0-77.0 % Lymphocytes (%) (Auto) 32.1 21.0-51.0 % Monocytes (%) (Auto) 11.1 3.0-13.0 % Eosinophils (%) (Auto) 3.2 0.0-8.0 % Basophils (%) (Auto) 0.6 0.0-5.0 % Neutrophils # (Auto) 2.8 1.8-7.7 K/uL Lymphocytes # (Auto) 1.7 1.0-4.8 K/uL Monocytes # (Auto) 0.6 0.1-1.0 K/uL Eosinophils # (Auto) 0.17 0.00-0.70 K/uL Basophils # (Auto) 0.03 0.00-0.20 K/uL Absolute Immature Granulocyte (auto 0.01 0-1 K/uL Nucleated Red Blood Cells 0.0 0.0-0.19 % Sodium Level 136 136-145 mmol/L Potassium Level 3.3 L 3.5-5.1 mmol/L Chloride Level 101 101-111 mmol/L Carbon Dioxide Level 30 21-32 mmol/L Blood Urea Nitrogen 20 H 7-18 mg/dL Creatinine 0.9 0.5-1.0 mg/dL Glomerular Filtration Rate Calc 63 >90 mL/min Random Glucose 101 70-105 mg/dL Total Calcium 9.2 8.5-10.1 mg/dL Total Creatine Kinase 49 21-232 U/L Troponin I High Sensitivity 11.7 4-50 ng/L Hemoglobin A1c 5.5 4.0-6.0 % Estimated Average Glucose (eAG) 111 70-126 mg/dL B-Type Natriuretic Peptide 67 0-100 pg/mL Triglycerides Level 81 30-200 mg/dL Cholesterol Level 252 H <200 mg/dL LDL Cholesterol 128 H 0-99 mg/dL HDL Cholesterol 89 H 35-85 mg/dL Thyroid Stimulating Hormone (TSH) 1.46 0.36-3.74 uIU/mL Current Medications Medications (Trade) Dose Ordered Sig/Felicity Route PRN Reason Start Time Stop Time Status Last Admin Dose Admin Acetaminophen (TYLenol 325MG TAB) 650 mg Q6H PRN PO MILD PAIN (1-3) 07/27/25 17:00 08/26/25 16:59 Amlodipine Besylate (NorvASC 2.5MG TAB) 2.5 mg DAILY PO 07/28/25 09:00 08/27/25 08:59 07/28/25 08:31 2.5 MG Aspirin (Aspirin 81mg Chew Tab) 81 mg DAILY PO 07/28/25 09:00 08/27/25 08:59 07/28/25 08:31 81 MG Aspirin (Aspirin 81mg Chew Tab) 324 mg ONCE STAT PO 07/27/25 12:57 07/27/25 12:59 DC 07/27/25 13:21 324 MG Atorvastatin Calcium (LIPItor 20MG) 20 mg HS PO 07/27/25 21:00 07/27/25 18:36 DC Famotidine (Pepcid 20mg Tab) 20 mg BID PO 07/27/25 21:00 08/26/25 20:59 07/28/25 08:31 20 MG Fish Oil (Fish Oil 1000 Mg/Cap) 1,000 mg BID PO 07/27/25 21:00 08/26/25 20:59 07/28/25 08:31 1,000 MG Labetalol HCl (TRANdate 100 MG TABLET) 100 mg BID PO 07/27/25 21:00 07/28/25 06:01 DC 07/27/25 20:43 100 MG Labetalol HCl (TRANdate 20MG SYG) 10 mg Q6H PRN IV for SBP> 180 07/27/25 18:00 07/28/25 06:01 DC 07/27/25 19:47 10 MG Nitroglycerin (Nitrostat) 0.4 mg AD PRN SL CHEST PAIN 07/27/25 13:00 08/26/25 12:59 07/27/25 13:21 0.4 MG Ondansetron HCl (zoFRAN 4MG INJ) 4 mg Q6H PRN IVP NAUSEA/VOMITING 07/27/25 17:00 08/26/25 16:59 Potassium Chloride 100 ml @ 100 mls/hr AD PRN IV POTASSIUM PROTOCOL 07/28/25 06:00 08/27/25 05:59 Potassium Chloride (K-Dur/Klor-Con 20meq) 20 meq AD PRN PO POTASSIUM PROTOCOL 07/28/25 06:00 08/27/25 05:59 Potassium Chloride (KCl 10% Elixir 20meq/15ml) 20 meq AD PRN PO POTASSIUM PROTOCOL 07/28/25 06:00 08/27/25 05:59 07/28/25 11:49 20 MEQ DIAGNOSTICS / RADIOLOGY: [ ] ASSESSMENT: Hypertensive urgency, POA Chest pain, POA, rule out ACS/unstable angina, POA History of poorly controlled hypertension, POA Left ventricular hypertrophy noted on EKG, POA Hyperlipidemia, uncontrolled, POA Octogenarian, POA History of adverse reactions to multiple antihypertensives previously including lisinopril, HCTZ, and amlodipine, POA PLAN: Continue admission to cardiac telemetry floor Continue Norvasc 2.5 mg p.o. daily. Monitor blood pressure closely. Nitroglycerin p.r.n. for chest pain Cardiology consult obtained, planning for stress test today. We will obtain 2D echocardiogram Continue on aspirin 81 mg daily All labs will be repeated in the morning, we will monitor patient closely under telemetry DVT and GI prophylaxis P.r.n. medications for fever, pain, nausea, constipation Follow up a.m. labs Further orders per hospital course SARITA MCRAE Jul 28, 2025 12:31
[2025-07-28] MEDS: REGADENOSON 0.4 MG/5 ML PF SYG IVP ONE (15:51)
[2025-07-28 16:14] VITALS: BP 199/89; PULSE 86; RESP 30; TEMP 98.1
--- NOTE | 2025-07-28 17:05 | PN ---
CARDIOLOGY Reason for consult: Hypertension, chest pain HPI/story at presentation: This is a pleasant 85-year-old female with past medical history of progressively complaints of atypical chest discomfort, radiating to the neck. Patient has a history of hypertension, uncontrolled and not on any medical therapy because of issues with side effects with medications in the past. Cardiology was consulted for further evaluation and management. Subjective: Past medical history: See below Allergies, Meds See chart Review of systems Review of Systems Constitutional: Negative for chills and fever. HENT: Negative for ear discharge and ear pain. Eyes: Negative for photophobia and discharge. Respiratory: Negative for cough, sputum production and stridor. Cardiovascular: Negative for chest pain and palpitations. Gastrointestinal: Negative for diarrhea and vomiting. Genitourinary: Negative for frequency. Musculoskeletal: Negative for myalgias. Skin: Negative for rash. Neurological: Negative for focal weakness and seizures. Endo/Heme/Allergies: Negative for polydipsia. Psychiatric/Behavioral: Negative for hallucinations. Vitals see chart PHYSICAL EXAMINATION GENERAL: The patient is alert and oriented*3 HEENT: Nonicteric sclerae, non traumatic HEART: Regular rate and rhythm with no murmurs LUNGS: Clear to auscultation bilaterally ABDOMEN: No acute issues, non tender GENITAL, RECTAL: deferred SKIN: No rash NEUROLOGIC: NFND EXTREMITIES: No edema ASSESSMENT CHEST PAIN, HYPERTENSION Atypical pain radiating to the neck HYPERTENSION intolerant to amlodipine because of swelling and lisinopril because of cough in the past CORE MEASURES Pending OTHER MEDICAL PROBLEMS Reviewed PLAN 07/27/2025 no further chest pain, troponins negative. Plan for stress testing tomorrow to further evaluate for ischemia. Received a dose of labetalol to help with blood pressures and she has not had any symptoms with it. She is also willing to consider a low-dose of amlodipine to help blood pressures if needed. Will try amlodipine first-given once a day dosing. If she has any issues with side effects/hypotension, can attempt alternative agents. Seen and examined 07/27/2025 at around 2300. 07/28/2025 Both stress test and echocardiogram were within acceptable limits, patient was having issues with hypertension and was given as needed hydralazine and dose of amlodipine was increased during the course of the day. Did feel nauseated with stress test and was given 1 dose of Zofran. Possible issues with anxiety demonstrated with Valium as well. Seen and examined 07/28/2025 at around 1700. ATTESTATION I was involved substantially in the care of this patient Number and complexity of problems addressed: 1 acute illness with systemic features Amount and or complexity of data Review of prior external note(s) from each unique source: 2+ Ordering of each unique test : 0 Review of the result(s) of each unique test: 2+ Assessment requiring an independent historian(s): No Independent interpretation of test performed by another MD/QHCP/appropriate source (not separately reported) : No Discussion of management or test interpretation with external MD/QHCP/appropriate source (not separately reported) : No Risk status (cardiac, billing related): Moderate Vitals/Labs Vital Signs Date Time Temp Pulse Resp B/P (MAP) Pulse Ox O2 Delivery O2 Flow Rate FiO2 07/28/25 16:14 98.1 86 30 199/89 98 Room Air 0.0 07/28/25 08:00 21 Laboratory Tests 07/28/25 04:33 Medications Current Medications Aspirin 324 mg ONCE STAT PO Last administered on 07/27/25at 13:21; Start 07/27/25 at 12:57; Stop 07/27/25 at 12:59; Status DC Nitroglycerin 0.4 mg AD PRN SL Last administered on 07/27/25at 13:21; Start 07/27/25 at 13:00; Stop 08/26/25 at 12:59 Acetaminophen 650 mg Q6H PRN PO; Start 07/27/25 at 17:00; Stop 08/26/25 at 16:59 Ondansetron HCl 4 mg Q6H PRN IVP; Start 07/27/25 at 17:00; Stop 08/26/25 at 16:59 Aspirin 81 mg DAILY PO Last administered on 07/28/25at 08:31; Start 07/28/25 at 09:00; Stop 08/27/25 at 08:59 Famotidine 20 mg BID PO Last administered on 07/28/25at 08:31; Start 07/27/25 at 21:00; Stop 08/26/25 at 20:59 Atorvastatin Calcium 20 mg HS PO; Start 07/27/25 at 21:00; Stop 07/27/25 at 18:36; Status DC Labetalol HCl 10 mg Q6H PRN IV Last administered on 07/27/25at 19:47; Start 07/27/25 at 18:00; Stop 07/28/25 at 06:01; Status DC Fish Oil 1,000 mg BID PO Last administered on 07/28/25at 08:31; Start 07/27/25 at 21:00; Stop 08/26/25 at 20:59 Labetalol HCl 100 mg BID PO Last administered on 07/27/25at 20:43; Start 07/27/25 at 21:00; Stop 07/28/25 at 06:01; Status DC Potassium Chloride 100 ml @ 100 mls/hr AD PRN IV; Start 07/28/25 at 06:00; Stop 08/27/25 at 05:59 Potassium Chloride 20 meq AD PRN PO Last administered on 07/28/25at 11:49; Start 07/28/25 at 06:00; Stop 08/27/25 at 05:59 Potassium Chloride 20 meq AD PRN PO; Start 07/28/25 at 06:00; Stop 08/27/25 at 05:59 Amlodipine Besylate 2.5 mg DAILY PO Last administered on 07/28/25at 08:31; Start 07/28/25 at 09:00; Stop 08/27/25 at 08:59 Amlodipine Besylate 2.5 mg ONCE ONCE PO Last administered on 07/28/25at 10:25; Start 07/28/25 at 10:30; Stop 07/28/25 at 10:31; Status DC Regadenoson 0.4 mg STK-MED ONCE IVP; Start 07/28/25 at 15:47; Stop 07/28/25 at 15:47; Status DC Hydralazine HCl 10 mg ONCE ONCE IV Last administered on 07/28/25at 16:17; Start 07/28/25 at 16:30; Stop 07/28/25 at 16:31; Status DC Diazepam 5 mg ONCE ONCE IVP; Start 07/28/25 at 16:30; Stop 07/28/25 at 16:36; Status DC HOA BLANCA MD Jul 28, 2025 17:05
--- NOTE | 2025-07-28 17:26 | HMCSR ---
APPROVED REPORT Height: 5 ft 5in Weight: 128 lbs TEST INDICATIONS Chest Pain The imaging protocol used to acquire images was Rest Tc-99m/stress Tc-99m 1 day Consent: The procedure was explained and understood by the patient. Informerd consent was witnessed Lasha Ibarra RN First, low dose rest was performed then high dose stress. RESTING DATA: The resting ekg shows: NSR Rest SPECT myocardial perfusion imaging was performed in supine position minutes following the intra venous injection of 11 mCi of Tc-99 Sestamibi. Time of rest injection: 13:40: Date: 07/28/2025 PHARMACOLOGIC STRESS: Pharmacologic stress test was performed by injecting regadenoson 0.4 mg IV push followed by the intra venous injection of mCi of Tc-99 Sestamibi. Time of stress injection: 15:50: Date: 07/28/2025 Heart Rate at time of stress injection: 76 bpm. Gated Stress SPECT was performed 60 minutes after stress injection. The images were gated to evaluate regional wall motion and calculate left ventricular ejection fracti on. STRESS DETAILS Reason for Termination: Infusion complete Stress Symptoms: Dyspnea Max HR Achieved: 99 bpm % of APMHR Achieved: 86 Max Blood Pressure: 197/85 mmHg Stress ECG: NSR LV PERFUSION There is evidence of decreased tracer uptake in the anterior wall that is similar in both stress and rest images that is suggestive of attenuation artifact. No clear cut evidence of ischemia present. No rmal EF Low risk stress test as above Conclusion There is evidence of decreased tracer uptake in the anterior wall that is similar in both stress and rest images that is suggestive of attenuation artifact. No clear cut evidence of ischemia present. No rmal EF Low risk stress test as above
[2025-07-28 20:00] VITALS: BP 166/74; PULSE 101; RESP 12; TEMP 98
[2025-07-28 23:55] VITALS: BP 133/48; PULSE 89; RESP 19; TEMP 98.2
[2025-07-29 00:10] VITALS: O2SAT 97
--- NOTE | 2025-07-29 00:10 | NUR ---
Pt arrived to room 231 from ER via stretcher. Pt transferred from stretcher to bed, well tolerated. Educated pt in use of call light and to not get out of bed by self, verbalized understanding. Left bed low, locked, rails upx2, and with call light in reach.
[2025-07-29 00:21] VITALS: BP 155/62; PULSE 94; RESP 21; TEMP 99.6
--- NOTE | 2025-07-29 00:27 | NUR ---
REPORT GIVEN TO SABINO FOR ROOM 231 AT [id number], PT TRANSFERRED WITHOUT ANY ISSUES, PT TOLERATED TRANSPORT WELL
[2025-07-29 04:00] VITALS: BP 142/77; PULSE 83; RESP 22; TEMP 98
[2025-07-29 08:00] VITALS: O2SAT 96
[2025-07-29 08:18] VITALS: BP 154/77; PULSE 75; RESP 16; TEMP 98.6
[2025-07-29] MEDS: amLODIPine 5 MG TAB PO SCH (09:12)
--- NOTE | 2025-07-29 10:45 | NUR ---
DCP: HOME Sw met with pt and her grandson at bedside. Pt reports she lives at home alone. Pt sates she remains very independent, active and drives. requires no assistance with ADLS, ambulation. Has a walker, cane, bsc, shower chair and grab bars if needed. No HH or HD services. PCP is Dr Sandoval and uses [facility] [address] for rx needs. Pt denies dc needs and will return home at dc Addendum: 07/29/25 at 1049 by ELENA CONNELLY Amended: Links added.
--- NOTE | 2025-07-29 11:10 | PN ---
CARDIOLOGY Reason for consult: Hypertension, chest pain HPI/story at presentation: This is a pleasant 85-year-old female with past medical history of progressively complaints of atypical chest discomfort, radiating to the neck. Patient has a history of hypertension, uncontrolled and not on any medical therapy because of issues with side effects with medications in the past. Cardiology was consulted for further evaluation and management. Subjective: Past medical history: See below Allergies, Meds See chart Review of systems Review of Systems Constitutional: Negative for chills and fever. HENT: Negative for ear discharge and ear pain. Eyes: Negative for photophobia and discharge. Respiratory: Negative for cough, sputum production and stridor. Cardiovascular: Negative for chest pain and palpitations. Gastrointestinal: Negative for diarrhea and vomiting. Genitourinary: Negative for frequency. Musculoskeletal: Negative for myalgias. Skin: Negative for rash. Neurological: Negative for focal weakness and seizures. Endo/Heme/Allergies: Negative for polydipsia. Psychiatric/Behavioral: Negative for hallucinations. Vitals see chart PHYSICAL EXAMINATION GENERAL: The patient is alert and oriented*3 HEENT: Nonicteric sclerae, non traumatic HEART: Regular rate and rhythm with no murmurs LUNGS: Clear to auscultation bilaterally ABDOMEN: No acute issues, non tender GENITAL, RECTAL: deferred SKIN: No rash NEUROLOGIC: NFND EXTREMITIES: No edema ASSESSMENT CHEST PAIN, HYPERTENSION Atypical pain radiating to the neck HYPERTENSION intolerant to amlodipine because of swelling and lisinopril because of cough in the past CORE MEASURES Pending OTHER MEDICAL PROBLEMS Reviewed PLAN 07/27/2025 no further chest pain, troponins negative. Plan for stress testing tomorrow to further evaluate for ischemia. Received a dose of labetalol to help with blood pressures and she has not had any symptoms with it. She is also willing to consider a low-dose of amlodipine to help blood pressures if needed. Will try amlodipine first-given once a day dosing. If she has any issues with side effects/hypotension, can attempt alternative agents. Seen and examined 07/27/2025 at around 2300. 07/28/2025 Both stress test and echocardiogram were within acceptable limits, patient was having issues with hypertension and was given as needed hydralazine and dose of amlodipine was increased during the course of the day. Did feel nauseated with stress test and was given 1 dose of Zofran. Possible issues with anxiety demonstrated with Valium as well. Seen and examined 07/28/2025 at around 1700. 07/29/2025 Symptoms have improved, on amlodipine labetalol and currently, discharged home on Lasix. Appreciate primary team. Stress test, echocardiogram from yesterday within normal limits. Seen and examined 07/29/2025 at 11 AM. ATTESTATION I was involved substantially in the care of this patient Number and complexity of problems addressed: 1 acute illness with systemic features Amount and or complexity of data Review of prior external note(s) from each unique source: 2+ Ordering of each unique test : 0 Review of the result(s) of each unique test: 2+ Assessment requiring an independent historian(s): No Independent interpretation of test performed by another MD/QHCP/appropriate source (not separately reported) : No Discussion of management or test interpretation with external MD/QHCP/appropriate source (not separately reported) : No Risk status (cardiac, billing related): Moderate Vitals/Labs Vital Signs Date Time Temp Pulse Resp B/P (MAP) Pulse Ox O2 Delivery O2 Flow Rate FiO2 07/29/25 08:18 98.6 75 16 154/77 96 Room Air 07/29/25 00:10 0 21 Medications Current Medications Aspirin 324 mg ONCE STAT PO Last administered on 07/27/25at 13:21; Start 07/27/25 at 12:57; Stop 07/27/25 at 12:59; Status DC Nitroglycerin 0.4 mg AD PRN SL Last administered on 07/27/25at 13:21; Start 07/27/25 at 13:00; Stop 08/26/25 at 12:59 Acetaminophen 650 mg Q6H PRN PO; Start 07/27/25 at 17:00; Stop 08/26/25 at 16:59 Ondansetron HCl 4 mg Q6H PRN IVP Last administered on 07/28/25at 18:00; Start 07/27/25 at 17:00; Stop 08/26/25 at 16:59 Aspirin 81 mg DAILY PO Last administered on 07/29/25at 09:10; Start 07/28/25 at 09:00; Stop 08/27/25 at 08:59 Famotidine 20 mg BID PO Last administered on 07/29/25at 09:11; Start 07/27/25 at 21:00; Stop 08/26/25 at 20:59 Atorvastatin Calcium 20 mg HS PO; Start 07/27/25 at 21:00; Stop 07/27/25 at 18:36; Status DC Labetalol HCl 10 mg Q6H PRN IV Last administered on 07/27/25at 19:47; Start 07/27/25 at 18:00; Stop 07/28/25 at 06:01; Status DC Fish Oil 1,000 mg BID PO Last administered on 07/29/25at 09:11; Start 07/27/25 at 21:00; Stop 08/26/25 at 20:59 Labetalol HCl 100 mg BID PO Last administered on 07/27/25at 20:43; Start 07/27/25 at 21:00; Stop 07/28/25 at 06:01; Status DC Potassium Chloride 100 ml @ 100 mls/hr AD PRN IV; Start 07/28/25 at 06:00; Stop 08/27/25 at 05:59 Potassium Chloride 20 meq AD PRN PO Last administered on 07/28/25at 11:49; Start 07/28/25 at 06:00; Stop 08/27/25 at 05:59 Potassium Chloride 20 meq AD PRN PO; Start 07/28/25 at 06:00; Stop 08/27/25 at 05:59 Amlodipine Besylate 2.5 mg DAILY PO Last administered on 07/28/25at 08:31; Start 07/28/25 at 09:00; Stop 07/29/25 at 07:18; Status DC Amlodipine Besylate 2.5 mg ONCE ONCE PO Last administered on 07/28/25at 10:25; Start 07/28/25 at 10:30; Stop 07/28/25 at 10:31; Status DC Regadenoson 0.4 mg STK-MED ONCE IVP; Start 07/28/25 at 15:47; Stop 07/28/25 at 15:47; Status DC Hydralazine HCl 10 mg ONCE ONCE IV Last administered on 07/28/25at 16:17; Start 07/28/25 at 16:30; Stop 07/28/25 at 16:31; Status DC Diazepam 5 mg ONCE ONCE IVP; Start 07/28/25 at 16:30; Stop 07/28/25 at 17:23; Status DC Diazepam 5 mg ONCE ONCE IV Last administered on 07/28/25at 18:38; Start 07/28/25 at 18:30; Stop 07/28/25 at 18:31; Status DC Hydralazine HCl 5 mg ONCE ONCE IV; Start 07/28/25 at 21:00; Stop 07/28/25 at 21:02; Status DC Amlodipine Besylate 5 mg DAILY PO Last administered on 07/29/25at 09:12; Start 07/29/25 at 09:00; Stop 08/28/25 at 08:59 Labetalol HCl 200 mg TID PO Last administered on 07/29/25at 09:09; Start 07/29/25 at 09:00; Stop 08/28/25 at 08:59 HOA BLANCA MD Jul 29, 2025 11:10
[2025-07-29 12:20] VITALS: BP 139/63; PULSE 67; RESP 16; TEMP 98.3
--- NOTE | 2025-07-29 12:36 | NUR ---
WAS REPORTED FROM STRAIGHTENING MACHINE FEEDER, JASON OF PATIENT'S HR 35 SINUS KARSTEN. PATIENT ASLEEP AND APPEARS COMFORTABLE. NOTIFIED DR. JETER AND ADRIENNE TADEO. BOTH STATED PATIENT CAN GO HOME PREVIOUSLY PLANNED.
[2025-07-29] MEDS ORDERED: LABE200T7 PO (15:41)
[2025-07-29] MEDS ORDERED: AMLO5TAB4 PO (15:41)
[2025-07-29] MEDS ORDERED: FISH1CAP20 PO (15:41)
[2025-07-29] MEDS ORDERED: FAMO20TA8 PO (15:41)
[2025-07-29] MEDS ORDERED: ASPI-1005 PO (15:41)
--- NOTE | 2025-07-29 15:48 | DS ---
Discharge Summary Hospital Course Summary: DATE OF ADMISSION:[07/27/2025] DATE OF DISCHARGE:[07/29/2025] DISPOSITION:[Home] CONDITION:[Medically stable] CONSULTANTS:[Data Entry Specialist] FOLLOW UP APPOINTMENTS: PCP 2 to 3 days. Data Entry Specialist within two weeks. [] PROCEDURES none:[] IMAGING: report attached to summary MICROBIOLOGY: report attached to summary ACTIVITY:[Independent] HOME MEDICATIONS: see [facility] NEW MEDICATIONS:[Amlodipine 5 mg p.o. daily, aspirin 81 mg p.o. daily, f amotidine 20 mg p.o. b.i.d., labetalol 200 mg p.o. 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 Cardiology was consulted. Lexiscan was performed 07/27/2020 5-. 2D echo showed EF more than 55% stage I diastolic dysfunction. Chest x-ray mild cardiomegaly. Patient's medications were readjusted by the community education specialist patient was placed on amlodipine 5 mg daily and labetalol 200 mg t.i.d.. Today patient's blood pressure is stable as well as heart rate. Most recent vital signs pulse 67, blood pressure 139/63. Patient is cleared to be discharged home follow up outpatient with the PCP in 2 to 3 days. Follow up with community education specialist within two weeks. All the medication was sent to the patient's pharmacy in the computer. Patient denies any shortness of breath, chest pain, nausea, vomiting or any other discomfort. Procedure(s): REVIEW OF SYSTEMS CONSTITUTIONAL: Denies fevers, chills, or night sweats. No unintentional weight loss reported. NEUROLOGICAL: Denies headache, amaurosis fugax, motor weakness, sensory deficit, vertigo/spinning sensation, gait abnormalities, or tremors. ENT: No hearing loss, otalgia, otorrhea, rhinitis, rhinorrhea, hoarseness, or sore throat. CARDIOVASCULAR: Denies any exertional angina, dyspnea on exertion, orthopnea, paroxysmal nocturnal dyspnea, palpitations, life-threatening arrhythmias, claudication. PULMONARY: Denies any shortness of breath, cough, phlegm/sputum, hemoptysis, pleuritic chest pain. SLEEP: Denies morning headaches, daytime somnolence or napping. Denies difficulty falling asleep, staying asleep, waking from sleep. Denies knowledge of snoring. GASTROINTESTINAL: Denies any type of dysphagia to either liquids or solids. Denies nausea, vomiting, pyrosis, early satiety, abdominal pain, diarrhea, constipation, or changes in stool consistency or caliber. Denies coffee-ground emesis, hematemesis, hematochezia, or melanotic stools. GENITOURINARY: Denies frequency, urgency, nocturia, hematuria or incontinence (Storage/Irritative symptoms.) Low urinary stream, straining to void, urinary intermittency or hesitancy, splitting of the voiding stream, terminal dribbling. ENDOCRINOLOGIC: Denies polyuria, polydipsia, polyphagia or heat/cold intolerances. HEMATOLOGIC: Denies thrombophilia/previous clots, or coagulopathy/bleeding disorders. ONCOLOGIC: Denies personal history of malignancy. DERMATOLOGIC: Denies rashes or pruritus. PSYCHIATRIC: Denies any suicidal or homicidal ideation. Denies hallucinations. PHYSICAL EXAM GENERAL APPEARANCE: The patient is awake, alert, and oriented, in no acute cardiopulmonary distress. NEUROLOGICAL: Cranial nerves II-XII grossly intact. Motor is 5/5 in bilateral upper and lower extremities proximal to distal. No sensory deficits. HEENT: Face is symmetric. Pupils are equal and reactive. Extraocular movements are intact. NECK: Supple. No JVD. No thyromegaly. No submental, submandibular, pre- /postauricular, occipital or supraclavicular lymphadenopathy. CHEST: Normal chest expansion. No Telemetry. LUNGS: Absence of any rales, rhonchi or any wheezing. CARDIOVASCULAR: Regular. S1 and S2 normal. No appreciable rubs, murmurs or gallops. ABDOMEN: Soft, nontender, and nondistended. There is no rebound, voluntary guarding, or rigidity. : Deferred. No Guerra. EXTREMITIES: Non-edematous and not cyanotic. No clubbing. Good capillary refill. SKIN: No skin breakdown. Assessment/Plan: ASSESSMENT: Hypertensive urgency, POA Chest pain, POA, rule out ACS/unstable angina, POA Acute diastolic congestive heart failure as per 2D echo 07/28/2025 History of poorly controlled hypertension, POA Left ventricular hypertrophy noted on EKG, POA Hyperlipidemia, uncontrolled, POA Octogenarian, POA History of adverse reactions to multiple antihypertensives previously including lisinopril, HCTZ, and amlodipine, POA Home Medications: Discontinued Reported Medications Multivitamin (Multivitamin) 1 Each Tablet, 1 EACH PO AM, TAB 12/22/21 [Turmeric] No Conflict Check, 1 TAB PO AM 12/22/21 Vit C/Zn Gluc/Herbal No.325 (Elderberry Zinc Vit C Lozenge) 1 Each Lozenge, 1 EACH MM AM, KARYN 12/22/21 [Vitamin D] No Conflict Check, 1 TAB PO AM 12/22/21 [magnesium] No Conflict Check, 1 TAB PO AM 12/22/21 [vitamin b] No Conflict Check, 1 TAB PO AM 12/22/21 [garlic] No Conflict Check, 2 TAB PO AM 12/22/21 [beet root powder] No Conflict Check, 1 APPL PO AM 12/22/21 Time spent arranging discharge: 31-60 minutes ATTESTATION BY PHYSICIAN I have seen and examined the patient. I reviewed the documentation, medical decision making, and treatment plan as noted by the mid-level provider above. I agree with the findings and plan of care. Carla López MD, KATARZYNA B BIT SANDER Jul 29, 2025 15:47
--- NOTE | 2025-07-29 16:25 | NUR ---
DISMISSAL INSTRUCTIONS GIVEN, VERBALIZED UNDERSTANDING. REMOVED SALINE LOCK FROM LEFT WRIST AND TELE PACK. IV SITE WITHOUT REDNESS. TAKEN TO PRIVATE CAR ALONG WITH PERSONAL BELONGINGS VIA WHEELCHAIR BY MONALISA BELTRAN.
== END 2025-07-29 16:50 | disposition home or self-care (01) | DRG 304 ==
LOC: EDH 12:50 → EDHIP 16:30 → 2AH 07-28 23:54
PROVIDERS: ADMIT Internal Medicine; ATTEND Internal Medicine
PROC: 4A02XM4 Measurement of Cardiac Total Activity, External Approach (ICD-10-PCS; principal; 2025-07-27)
PROC: 3E073KZ Introduction of Other Diagnostic Substance into Coronary Artery, Percutaneous Approach (ICD-10-PCS; 2025-07-27)
DX: I16.0 Hypertensive urgency (principal); I50.31 Acute diastolic (congestive) heart failure; I20.0 Unstable angina; I11.0 Hypertensive heart disease with heart failure; E78.5 Hyperlipidemia, unspecified; Z90.49 Acquired absence of other specified parts of digestive tract; Z79.899 Other long term (current) drug therapy; Z88.8 Allergy status to other drugs, medicaments and biological substances
CPT/HCPCS: 36415; 71045; 76376; 78452; 80048; 80061; 82550; 83036; 83735; 83880; 84443; 84484; 85025; 93005; 93017; 93306; 93356; 93975; 96374; 99285; A9500; G0378; J0360; J2405; J2785; J3360